=== PATIENT | male | born 1975 | race Caucasian/White ===

== ENCOUNTER 2022-06-24 10:07 | Emergency (ER) | payer BC, OTHER ==
[~2022-06-24] VITALS: Ht 181 cm; Wt 90.7 kg
[2022-06-24] MEDS ORDERED: LACTATED RINGERS 1,000 ML IV STA ×2 (10:37→14:04)
[2022-06-24] MEDS ORDERED: ASPIRIN 81 MG CHEW (CHILDREN'S ASA) PO STA (10:37)
[2022-06-24 10:47] LABS: BASOPHILS # (AUTO) 0.1 10^3/uL (0.0-0.1); BASOPHILS % (AUTO) 1 % (0-10); EOSINOPHILS % (AUTO) 1 % (0-10); HEMATOCRIT 40 % (40-54); HEMOGLOBIN 14.4 g/dL (13.3-17.7); LYMPHOCYTES # (AUTO) 0.4 10^3/uL (1.0-4.0); LYMPHOCYTES % (AUTO) 5 % (12-44); MEAN CORPUSCULAR HEMOGLOBIN 31 pg (25-34); MEAN CORPUSCULAR HGB CONC 36 g/dL (32-36); MEAN CORPUSCULAR VOLUME 85 fL (80-99); MEAN PLATELET VOLUME 10.1 fL (9.0-12.2); MONOCYTES # (AUTO) 1.2 10^3/uL (0.0-1.0); MONOCYTES % (AUTO) 15 % (0-12); NEUTROPHILS # (AUTO) 6.4 10^3/uL (1.8-7.8); NEUTROPHILS % (AUTO) 78 % (42-75); PLATELET COUNT 175 10^3/uL (130-400); WHITE BLOOD COUNT 8.1 10^3/uL (4.3-11.0)
[2022-06-24 10:50] LABS: ALBUMIN 4.6 GM/DL (3.2-4.5)
[2022-06-24 10:51] LABS: CHLORIDE 100 MMOL/L (98-107); SODIUM 135 MMOL/L (135-145)
[2022-06-24 10:52] LABS: CALCIUM 9.5 MG/DL (8.5-10.1)
[2022-06-24 10:53] LABS: GLUCOSE 183 MG/DL (70-105); TOTAL PROTEIN 7.7 GM/DL (6.4-8.2)
--- NOTE | 2022-06-24 10:53 | ED General ---
General Chief Complaint: Cardiac/General Problems Stated Complaint: CARDIAC Nursing Triage Note: PT TO RM 6 BY [facility] FROM [facility] IN [place] WITH CC OF A NEW BBB, PT STATES HE HAS A FLUTTER IN HIS CHEST AND DOES NOT FEEL GOOD BUT DENIES PAIN Source of Information: Patient Exam Limitations: No Limitations History of Present Illness Date Seen by Provider: Jun 24, 2022 Time Seen by Provider: 10:21 Initial Comments Here with report of overall not feeling well. He was seen in his clinic by his provider, Dr. Zepeda, who was worried due to the rapid heart rate. She did call and talk with me and he has heart rate 1 25-1 30 with concern for new right bundle branch block. She states that she sees him often as he is on Suboxone therapy and states that today he looks quite ill. Patient did admit to not feeling well and states over the last week he has not felt well. He did not realize that he had rapid heart rate. He is on long-term therapy due to a burst fracture in his back and chronic back pain. She has's managed his Suboxone therapy and was weaning him off of benzodiazepines. Patient did not tell her but he did tell me that he abruptly quit those 2 weeks ago and has not taken any since. Reports that he did have diarrhea last week. Admits that his blood sugars have been high recently and he is urinating more. Denies dysuria. States that his appetite has been decreased. Timing/Duration: 1 Week, Getting Worse Severity: Moderate Associated Systoms: No Chest Pain, No Cough, No Fever/Chills; Nausea/Vomiting, Shortness of Air, Weakness Allergies and Home Medications Allergies Coded Allergies: No Known Drug Allergies (Unverified , 06/24/22) Patient Home Medication List Home Medication List Reviewed: Yes Review of Systems Review of Systems Constitutional: No chills, No fever EENTM: No nose congestion, No throat pain Respiratory: No cough; short of breath Cardiovascular: No chest pain; palpitations Gastrointestinal: No nausea; vomiting Genitourinary: No dysuria; frequency Musculoskeletal: No back pain, No muscle pain Skin: No lesions, No rash Psychiatric/Neurological: Anxiety; Denies Headache; Weakness All Other Systems Reviewed Negative Unless Noted: Yes Past Mjbmaff-Kdbtpw-Zdoqmo Hx Patient Social History Tobacco Use?: Yes Tobacco type used: Cigarettes Smoking Status: Current Someday Smoker Substance use?: No Alcohol Use?: No Immunizations Up To Date Second COVID19 Vaccination Sixto: YES COVID19 Vaccine Tool [employer] 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 oz. kg; 27.00 BMI Method: General Appearance: WD/WN, Anxious HEENT: PERRL/EOMI, Pharynx Normal Neck: Non Tender, Supple Respiratory: Lungs Clear, Normal Breath Sounds Cardiovascular: No Murmur, Tachycardia (Sustained rate of 125-130) Gastrointestinal: Non Tender, Soft Back: Normal Inspection, No CVA Tenderness, No Vertebral Tenderness Extremity: Normal Range of Motion, Non Tender Neurologic/Psychiatric: Alert, Oriented x3 Skin: Normal Color, Warm/Dry Progress/Results/Core Measures Suspected Sepsis SIRS Temperature: Pulse: 133 Respiratory Rate: 20 Laboratory Tests 06/24/22 10:37: White Blood Count 8.1 Blood Pressure 151 /97 Mean: 115 Laboratory Tests 06/24/22 10:37: Creatinine 0.84, Platelet Count 175, Total Bilirubin 0.3 Results/Orders Lab Results Laboratory Tests Test 06/24/22 10:14 06/24/22 10:37 06/24/22 10:50 06/24/22 13:10 Range/Units D-Dimer < 0.27 0.00-0.49 UG/ML White Blood Count 8.1 4.3-11.0 10^3/uL Red Blood Count 4.65 4.30-5.52 10^6/uL Hemoglobin 14.4 13.3-17.7 g/dL Hematocrit 40 40-54 % Mean Corpuscular Volume 85 80-99 fL Mean Corpuscular Hemoglobin 31 25-34 pg Mean Corpuscular Hemoglobin Concent 36 32-36 g/dL Red Cell Distribution Width 12.1 10.0-14.5 % Platelet Count 175 130-400 10^3/uL Mean Platelet Volume 10.1 9.0-12.2 fL Immature Granulocyte % (Auto) 1 % Neutrophils (%) (Auto) 78 H 42-75 % Lymphocytes (%) (Auto) 5 L 12-44 % Monocytes (%) (Auto) 15 H 0-12 % Eosinophils (%) (Auto) 1 0-10 % Basophils (%) (Auto) 1 0-10 % Neutrophils # (Auto) 6.4 1.8-7.8 10^3/uL Lymphocytes # (Auto) 0.4 L 1.0-4.0 10^3/uL Monocytes # (Auto) 1.2 H 0.0-1.0 10^3/uL Eosinophils # (Auto) 0.0 0.0-0.3 10^3/uL Basophils # (Auto) 0.1 0.0-0.1 10^3/uL Immature Granulocyte # (Auto) 0.0 0.0-0.1 10^3/uL Neutrophils % (Manual) 75 % Lymphocytes % (Manual) 4 % Monocytes % (Manual) 14 % Basophils % (Manual) 1 % Band Neutrophils 6 % Blood Morphology Comment NORMAL Sodium Level 135 135-145 MMOL/L Potassium Level 4.0 3.6-5.0 MMOL/L Chloride Level 100 98-107 MMOL/L Carbon Dioxide Level 23 21-32 MMOL/L Anion Gap 12 5-14 MMOL/L Blood Urea Nitrogen 10 7-18 MG/DL Creatinine 0.84 0.60-1.30 MG/DL Estimat Glomerular Filtration Rate 108 BUN/Creatinine Ratio 12 Glucose Level 183 H 70-105 MG/DL Calcium Level 9.5 8.5-10.1 MG/DL Corrected Calcium 8.5-10.1 MG/DL Magnesium Level 1.5 L 1.6-2.4 MG/DL Total Bilirubin 0.3 0.1-1.0 MG/DL Aspartate Amino Transf (AST/SGOT) 26 5-34 U/L Alanine Aminotransferase (ALT/SGPT) 26 0-55 U/L Alkaline Phosphatase 96 40-136 U/L Troponin I < 0.028 < 0.028 <0.028 NG/ML C-Reactive Protein High Sensitivity 0.28 0.00-0.50 MG/DL Total Protein 7.7 6.4-8.2 GM/DL Albumin 4.6 H 3.2-4.5 GM/DL Free Thyroxine 0.98 0.70-1.48 NG/DL TSH [place] Testing 0.34 L 0.35-4.94 UIU/ML Urine Color YELLOW Urine Clarity CLEAR Urine pH 5.5 5-9 Urine Specific [place] 1.025 H 1.016-1.022 Urine Protein NEGATIVE NEGATIVE Urine Glucose (UA) 2+ H NEGATIVE Urine Ketones NEGATIVE NEGATIVE Urine Nitrite NEGATIVE NEGATIVE Urine Bilirubin NEGATIVE NEGATIVE Urine Urobilinogen 0.2 < = 1.0 MG/DL Urine Leukocyte Esterase NEGATIVE NEGATIVE Urine RBC (Auto) NEGATIVE NEGATIVE Urine RBC NONE /HPF Urine WBC RARE /HPF Urine Crystals NONE /LPF Urine Bacteria NEGATIVE /HPF Urine Casts NONE /LPF Urine Mucus NEGATIVE /LPF Urine Culture Indicated NO My Orders Orders - BEE ANDREW MD Ekg Tracing (06/24/22 10:11) Cbc With Automated Diff (06/24/22 10:37) Comprehensive Metabolic Panel (06/24/22 10:37) Hs C Reactive Protein (06/24/22 10:37) Fibrin Degradation Products (06/24/22 10:37) Magnesium (06/24/22 10:37) Thyroid Analyzer (06/24/22 10:37) Troponin I [place] (06/24/22 10:37) Ua Culture If Indicated (06/24/22 10:37) Ed Iv/Invasive Line Start (06/24/22 10:37) Chest 1 View, Ap/Pa Only (06/24/22 10:37) Lactated Ringers (Lr 1000 Ml Iv Solution (06/24/22 10:37) Aspirin Chewable Tablet (Baby Aspirin Ch (06/24/22 10:37) Manual Differential (06/24/22 10:37) Free T4 (Free Thyroxine) (06/24/22 10:37) Ns Iv 1000 Ml (Sodium Chloride 0.9%) (06/24/22 11:51) Troponin I [place] (06/24/22 12:56) Ekg Tracing (06/24/22 14:04) Lactated Ringers (Lr 1000 Ml Iv Solution (06/24/22 14:04) Vital Signs/I&O 06/24/22 10:09 Temp 38.4 Pulse 133 Resp 20 B/P (MAP) 151/97 (115) Pulse Ox 97 O2 Delivery Room Air Capillary Refill : Blood Pressure Mean: 115 Progress Note : Progress Note Seen and evaluated. IV, labs, EKG and chest x-ray ordered. We will check thyroid function as well. UA ordered for concerns related to glucose and hyperglycemia. LR 1 L bolus ordered. We will see how this does for heart rate and then potentially initiate treatment for atrial flutter with rapid ventricular response using Cardizem. Monitor patient. 1359: We did repeat normal saline 1 L bolus as he did have improvement in his heart rate. I have repeated the troponin which is negative. We just repeated EKG and that shows sinus tachycardia at rate of 107. I have rediscussed the case with Dr. Zepeda. I do believe that he is likely dehydrated secondary to his diabetes and elevated blood sugar as well is after going through withdrawal from benzodiazepine after abruptly stopping 2 weeks ago but the diarrhea for a week. He is feeling better now. We will repeat LR 1 L bolus now as he is just started to provide reasonable urination. We will continue to monitor heart rate. If he has continued improvement then DC home with close follow-up is reasonable. Dr. Zepeda has already set up appointment for him for early next week. 1512: Heart rate now in the 90s while resting. Overall he is feeling better but tired. No indication for admission currently. I do believe his symptoms were related to dehydration. Repeat troponin negative. Discharged home with return precautions. Patient and family verbalized understanding of instructions and agreement with plan. They do have appointment with Dr. Zepeda next Tuesday. ECG Initial ECG Impression Date: Jun 24, 2022 Initial ECG Impression Time: 10:17 Initial ECG Rate: 125 Initial ECG Rhythm: A Fib/Flutter Initial ECG Impression: Atrial Fibrillation w/RVR Initial ECG Comparisson: No Previous ECG Available Comment Atrial flutter with rate of 125 and leftward axis. Right bundle branch block noted. No evidence of ST elevation NV. Interpreted by me. EKG : EKG Time: 13:59 Rate: 107 Rhythm: S.Tach Comment Findings now of sinus tachycardia with rate of 107 and normal but leftward axis. QRS duration remains similar. [place] is improved from previous. No evidence of ST elevation NV. Interpreted by me. Diagnostic Imaging Diagonstic Imaging: Xray Plain Films/CT/US/NM/MRI: chest Comments [facility], [place] NAME: REBECCA NOGUERA [facility] REC#: [id number] PT STATUS: REG ER : 1975 PHYSICIAN: BEE ANDREW MD ADMIT DATE: 06/24/22/ER Signed Date of Exam:06/24/22 CHEST 1 VIEW, AP/PA ONLY CHEST 1 VIEW, AP/PA ONLY Indication: Heart palpitations Comparison: None available. Findings: No focal airspace disease in the visualized lungs. No pleural effusion or pneumothorax. Normal cardiomediastinal silhouette. Impression: 1. No acute cardiopulmonary process by portable radiography. Dictated by: Dictated on workstation # [id number] Dict: 06/24/221126 Trans: 06/24/221126 [facility] [id number] Interpreted by: MAXIMILIAN ALVARADO MD Electronically signed by: MAXIMILIAN ALVARADO MD 06/24/221126 Departure Impression Primary Impression: Tachycardia Additional Impressions: Dehydration Uncontrolled diabetes mellitus with hyperglycemia Qualified Codes: E11.65 - Type 2 diabetes mellitus with hyperglycemia Disposition: 01 HOME, SELF-CARE Condition: Improved Departure-Patient Inst. Decision time for Depature: 15:14 Referrals: NO,LOCAL PHYSICIAN (PCP) Primary Care Physician RIO ZEPEDA MD Patient Instructions: High Blood Sugar, Adult ED, Tachycardia, Dehydration, Adult ED Add. Discharge Instructions: All discharge instructions reviewed with patient and/or family. Voiced understanding. Drink plenty of fluids. Carefully monitor your blood sugars and record. Let Dr. Zepeda know of those results. Continue home medications as previously prescribed. Keep appointment with Dr. Zepeda next Tuesday as scheduled. Return for worse pain, fever, vomiting, weakness, breathing problems or other concerns as needed. Copy Copies To 1: RIO ZEPEDA MD, TIMOTHY D MD Jun 24, 2022 10:53
[2022-06-24 10:54] LABS: CARBON DIOXIDE 23 MMOL/L (21-32)
[2022-06-24 10:55] LABS: BILIRUBIN,TOTAL 0.3 MG/DL (0.1-1.0)
[2022-06-24 10:56] LABS: ALKALINE PHOSPHATASE 96 U/L (40-136)
[2022-06-24 10:57] LABS: CREATININE SERUM 0.84 MG/DL (0.60-1.30); GFR ESTIMATED 108
[2022-06-24 10:58] LABS: BUN/CREATININE RATIO 12
[2022-06-24 10:58] LABS: BILIRUBIN,URINE NEGATIVE (NEGATIVE); CLARITY,URINE CLEAR; COLOR,URINE YELLOW; GLUCOSE, URINE (UA) 2+ (NEGATIVE); KETONES,URINE NEGATIVE (NEGATIVE); LEUKOCYTE ESTERASE ,URINE NEGATIVE (NEGATIVE); NITRITE,URINE NEGATIVE (NEGATIVE); PH,URINE 5.5 (5-9); PROTEIN,URINE NEGATIVE (NEGATIVE)
[2022-06-24 11:00] LABS: ALANINE AMINOTRANSFERASE 26 U/L (0-55); MAGNESIUM 1.5 MG/DL (1.6-2.4)
[2022-06-24 11:14] LABS: TSH (THYROID ANALYZER) 0.34 UIU/ML (0.35-4.94)
--- NOTE | 2022-06-24 11:29 | Diagnostic Imaging Report ---
CHEST 1 VIEW, AP/PA ONLY Indication: Heart palpitations Comparison: None available. Findings: No focal airspace disease in the visualized lungs. No pleural effusion or pneumothorax. Normal cardiomediastinal silhouette. Impression: 1. No acute cardiopulmonary process by portable radiography. Dictated by: Dictated on workstation # [id number]
[2022-06-24 11:32] LABS: BACTERIA,URINE NEGATIVE /HPF; WBC,URINE RARE /HPF
[2022-06-24 11:36] LABS: BAND NEUTROPHILS 6 %; NEUTROPHILS % (MANUAL) 75 %
[2022-06-24 11:37] LABS: BASOPHILS % (MANUAL) 1 %; LYMPHOCYTES % (MANUAL) 4 %; MONOCYTES % (MANUAL) 14 %; RBC MORPH NORMAL
[2022-06-24] MEDS ORDERED: NS IV 1000 ML 1,000 ML IV STA (11:51)
[2022-06-24 12:11] LABS: FREE T4 (FREE THYROXINE) 0.98 NG/DL (0.70-1.48)
[2022-06-24 15:32] VITALS: BP 131/78
== END 2022-06-24 15:35 | disposition home or self-care (01) ==
LOC: ER 10:09
DX: I48.92 Unspecified atrial flutter (principal); E11.65 Type 2 diabetes mellitus with hyperglycemia; E86.0 Dehydration; F17.210 Nicotine dependence, cigarettes, uncomplicated
CPT/HCPCS: 36415; 71045; 80053; 81000; 83735; 84439; 84443; 84484; 85007; 85027; 85379; 86141; 93005